=== PATIENT | female | born 1990 | race African-American/Black ===

== ENCOUNTER 2017-06-08 10:52 | Emergency (ER) | payer OTHER ==
[~2017-06-08] VITALS: Ht 170.2 cm; Wt 181.4 kg
[~2017-06-08 10:52] MED LIST: BACTRIM DS TAB1 EAC1 PO; FLAGYL500 MG PO; KEFLEX500 MG PO; MACROBID 100 M100 M1 PO; TORADOL 10 MG T10 MG PO
[2017-06-08 10:53] VITALS: BP 149/87
[2017-06-08] MEDS ORDERED: AMOXICILLIN500 M1 PO (11:21)
[2017-06-08] MEDS ORDERED: IBUPROFEN 600600 M1 PO (11:27)
== END 2017-06-08 11:50 | disposition home or self-care (01) ==
LOC: ER 10:52
DX: H66.93 Otitis media, unspecified, bilateral (principal); J45.909 Unspecified asthma, uncomplicated

== ENCOUNTER 2017-08-21 12:27 | Emergency (ER) | payer OTHER ==
[~2017-08-21] VITALS: Ht 170.2 cm; Wt 191.9 kg
[~2017-08-21 12:27] MED LIST changes: +AMOXICILLIN500 M1 PO; +IBUPROFEN 600600 M1 PO
[2017-08-21 13:39] LABS: HEMATOCRIT 40.7 % (37.0-47.0); HEMOGLOBIN 13.5 gm/dL (12.0-15.0); MCH 29.2 pg (26.0-34.0); MCHC 33.1 g/dL (28.0-37.0); MCV 88.3 fL (80.0-100.0); RBC 4.61 mil/uL (4.20-5.00); RDW 16.1 % (10.5-14.5); WBC 7.2 thou/uL (4.0-11.0)
== END 2017-08-21 15:35 | disposition home or self-care (01) ==
LOC: ER 12:27
PROVIDERS: Emergency Medicine
DX: O46.91 Antepartum hemorrhage, unspecified, first trimester (principal); O99.511 Diseases of the respiratory system complicating pregnancy, first trimester; Z3A.09 9 weeks gestation of pregnancy